=== PATIENT | female | born 1975 | race Caucasian/White ===

== ENCOUNTER 2016-05-24 14:59 | Outpatient (CLI) | payer MEDICAID | END 2016-05-24 15:00 | disposition critical access hospital (66) | DX: R40.20 Unspecified coma (principal) | CPT/HCPCS: A0425; A0427 ==

== ENCOUNTER 2016-05-24 15:04 | Inpatient (IN) | payer MEDICAID ==
[2016-05-24] MEDS ORDERED: NALOXONE 0.4 MG/ML VIAL IVP STA ×2 (15:10→15:14)
[2016-05-24] MEDS ORDERED: ONDANSETRON 4 MG/2 ML VIAL ONE (15:14)
[2016-05-24] MEDS ORDERED: ONDANSETRON 4 MG/2 ML VIAL IVP STA (15:15)
[2016-05-24] MEDS ORDERED: ETOMIDATE 40 MG/20 ML VIAL IVP ONE (15:16)
[2016-05-24] MEDS ORDERED: SUCCINYLCHOLINE 200 MG/10 ML VIAL ONE (15:17)
[2016-05-24] MEDS ORDERED: PROPOFOL 1000 MG/100 ML 100 ML IV ONE ×2 (15:19→19:42)
[2016-05-24] MEDS ORDERED: ETOMIDATE 40 MG/20 ML VIAL IVP STA (15:19)
[2016-05-24] MEDS ORDERED: SUCCINYLCHOLINE 200 MG/10 ML VIAL IVP STA (15:20)
[2016-05-24] MEDS ORDERED: PROPOFOL 200 MG/20 ML VIAL IVP STA (15:37)
[2016-05-24] MEDS: PROPOFOL 1000 MG/100 ML 100 ML IV SCH ×5 (15:39→19:47)
[2016-05-24] MEDS ORDERED: LORazepam 2 MG/ML SYRINGE ONE ×3 (15:40→17:21)
[2016-05-24] MEDS ORDERED: LORazepam 2 MG/ML SYRINGE IVP STA ×2 (15:44→15:51)
[2016-05-24] MEDS ORDERED: MIDAZOLAM 2 MG/2 ML VIAL IVP STA (16:11)
[2016-05-24] MEDS ORDERED: fentaNYL 100 MCG/2 ML VIAL IVP STA (16:11)
[2016-05-24] MEDS ORDERED: fentaNYL 100 MCG/2 ML VIAL ONE (16:12)
[2016-05-24] MEDS ORDERED: MIDAZOLAM 50 MG/10 ML VIAL ONE (16:12)
[2016-05-24] MEDS ORDERED: MIDAZOLAM 2 MG/2 ML VIAL ONE (16:13)
[2016-05-24] MEDS ORDERED: SODIUM CHLORIDE 0.9% 2,000 ML IV ONE (16:20)
[2016-05-24] MEDS ORDERED: SODIUM CHLORIDE FLUSH 0.9% 10 ML SYRINGE IVP PRN (18:18)
[2016-05-24] MEDS ORDERED: ALBUTEROL NEB 2.5 MG/3 ML INH PRN (18:18)
[2016-05-24] MEDS: SODIUM CHLORIDE 0.9% 1,000 ML IV SCH ×2 (18:53→21:45)
[2016-05-24] MEDS ORDERED: MIDAZOLAM DRIP 100 ML IV SCH (20:00)
[2016-05-24] MEDS: CHLORHEXIDINE GLUCONATE 15 ML UDC PO SCH (21:11)
[2016-05-24] MEDS: FAMOTIDINE 20 MG/50 ML 50 ML IV SCH (21:11)
[2016-05-24] MEDS: SODIUM CHLORIDE FLUSH 0.9% 10 ML SYRINGE IVP SCH (21:12)
[2016-05-25] MEDS: PROPOFOL 1000 MG/100 ML 100 ML IV SCH ×2 (01:18→06:29)
[2016-05-25] MEDS ORDERED: MAGNESIUM SULFATE 2 GRAM 50 ML IV SCH (05:12)
[2016-05-25] MEDS: SODIUM CHLORIDE FLUSH 0.9% 10 ML SYRINGE IVP SCH ×3 (05:35→20:51)
[2016-05-25] MEDS: SODIUM CHLORIDE 0.9% 1,000 ML IV SCH ×3 (06:29→23:19)
[2016-05-25] MEDS ORDERED: PANTOPRAZOLE 40 MG VIAL IVP SCH (07:00)
[2016-05-25] MEDS ORDERED: MAGNESIUM SULFATE 2 GRAM 50 ML IV ONE (08:32)
[2016-05-25] MEDS: FAMOTIDINE 20 MG/50 ML 50 ML IV SCH ×2 (09:55→20:51)
[2016-05-25] MEDS: ENOXAPARIN 40 MG/0.4 ML SYRINGE SUBQ SCH (09:55)
[2016-05-25] MEDS: CHLORHEXIDINE GLUCONATE 15 ML UDC PO SCH (09:55)
[2016-05-25] MEDS: PHENOL THROAT SPRAY 177 ML MM PRN ×5 (12:23→21:29)
[2016-05-25] MEDS: ONDANSETRON 4 MG/2 ML VIAL IVP PRN (13:07)
[2016-05-25] MEDS: HYDROcod/ACETAM 5/325 MG TABLET PO PRN ×3 (13:27→21:28)
[2016-05-25] MEDS ORDERED: HYDROcod/ACETAM 5/325 MG TABLET PO PRN (21:32)
[2016-05-26] MEDS: HYDROcod/ACETAM 5/325 MG TABLET PO PRN ×4 (01:22→12:50)
[2016-05-26] MEDS: ONDANSETRON 4 MG/2 ML VIAL IVP PRN (03:37)
[2016-05-26] MEDS ORDERED: PHENOL THROAT SPRAY 177 ML MM PRN (03:50)
[2016-05-26] MEDS: SODIUM CHLORIDE FLUSH 0.9% 10 ML SYRINGE IVP SCH ×2 (05:31→08:38)
[2016-05-26] MEDS: SODIUM CHLORIDE 0.9% 1,000 ML IV SCH ×2 (07:33→14:45)
[2016-05-26] MEDS ORDERED: KETOROLAC 15 MG/ML VIAL IVP PRN (08:18)
[2016-05-26] MEDS: ENOXAPARIN 40 MG/0.4 ML SYRINGE SUBQ SCH (08:37)
[2016-05-26] MEDS: METHYLPHENIDATE 5 MG TABLET PO SCH ×2 (08:46→16:28)
[2016-05-26] MEDS ORDERED: SERTRALINE 50 MG TABLET PO SCH (09:00)
[2016-05-26] MEDS ORDERED: LEVOTHYROXINE 100 MCG TABLET PO SCH (09:00)
[2016-05-26] MEDS ORDERED: KETOROLAC 15 MG/ML VIAL IVP ONE (13:00)
[2016-05-26] MEDS ORDERED: IOPAMIDOL-300 50 ML VIAL PO ONE (17:11)
[2016-05-26] MEDS ORDERED: IOPAMIDOL-300 100 ML VIAL IVP ONE (17:11)
[2016-05-26] MEDS ORDERED: lamoTRIgine 25 MG TABLET PO SCH (21:00)
== END 2016-05-26 17:30 | disposition home or self-care (01) | DRG 917 ==
PROC: 5A1935Z Respiratory Ventilation, Less than 24 Consecutive Hours (ICD-10-PCS; principal; 2016-05-24)
PROC: 0BH17EZ Insertion of Endotracheal Airway into Trachea, Via Natural or Artificial Opening (ICD-10-PCS; 2016-05-24)
DX: T50.904A Poisoning by unspecified drugs, medicaments and biological substances, undetermined, initial encounter (principal); G92 Toxic encephalopathy; E87.2 Acidosis; E03.9 Hypothyroidism, unspecified; F98.8 Other specified behavioral and emotional disorders with onset usually occurring in childhood and adolescence; F32.9 Major depressive disorder, single episode, unspecified; G40.909 Epilepsy, unspecified, not intractable, without status epilepticus; R73.9 Hyperglycemia, unspecified

== ENCOUNTER 2016-05-31 14:50 | Outpatient (CLI) | payer MEDICAID | END 2016-05-31 14:51 | disposition EMS.NT | DX: R56.9 Unspecified convulsions (principal) ==

== ENCOUNTER 2016-06-07 08:34 | Outpatient (CLI) | payer MEDICAID | END 2016-06-07 08:35 | disposition EMS.NT | DX: R56.9 Unspecified convulsions (principal) ==